=== PATIENT | male | born 1965 | race Caucasian/White ===

== ENCOUNTER 2017-06-02 22:28 | Emergency (ER) | payer OTHER ==
[~2017-06-02] VITALS: Ht 175.3 cm; Wt 80.7 kg
[2017-06-02] MEDS ORDERED: LIDO:MAALOX 1:1 20 ML SINGLE DOSE ONE (22:49)
[2017-06-02] MEDS ORDERED: LIDO:MAALOX 1:1 20 ML SINGLE DOSE PO ONE ×2 (23:00)
[2017-06-02] MEDS ORDERED: KETOROLAC 30 MG/ML VIAL. IV ONE (23:15)
[2017-06-02] MEDS ORDERED: IV NORMAL SALINE 1,000ML 1,000 ML IV SCH (23:15)
[2017-06-02] MEDS ORDERED: ONDANSETRON PF 4 MG/2 ML VIAL. IV ONE (23:15)
[2017-06-02] MEDS ORDERED: fentaNYL PF 100 MCG/2 ML VIAL IV PRN (23:15)
[2017-06-02] MEDS ORDERED: FAMOTIDINE 20 MG/2 ML VIAL IVP ONE (23:15)
--- NOTE | 2017-06-02 23:28 | PHYS DOC ---
General Chief Complaint: ABDOMINAL PAIN Stated Complaint: ABDOMINAL PAIN Time Seen by MD: 22:41 Source: patient Exam Limitations: no limitations Problems: History of Present Illness Initial Comments Patient is a 52-year-old male who comes to the ED complaining of abdominal pain. Patient states that for the past 2 days he's had intermittent and worsening epigastric and right upper quadrant pain. 2 nights ago (Saturday night) he says he developed epigastric aching pain described as moderate no exacerbating or relieving factors noted. There was no relation to by mouth intake symptoms did resolve that evening spontaneously. Today around 7 PM patient had a recurrence of the discomfort this time it was more severe. He feels as if he has fullness or gas in his epigastric/right upper quadrant however he has burped and passed gas without any relief. He's had no nausea vomiting no diarrhea constipation no changes in stool color or caliber. No fever chills sweats or myalgias no travel or bad food exposure. Timing/Duration: getting worse (2 days) Severity: severe Modifying Factors: improves with other Associated Symptoms: other Allergies: Coded Allergies: No Known Drug Allergies (Unverified , 06/02/17) Past Medical History Medical History: no pertinent history Surgical History: no surgical history Social History Smoker: non-smoker Alcohol: occasionally Drugs: none Review of Systems Constitutional: denies chills, denies diaphoresis, denies fever, denies malaise Respiratory: denies cough, denies shortness of breath Cardiovascular: denies chest pain, denies palpitations, denies syncope Gastrointestinal: see HPI Genitourinary: denies discharge, denies frequency, denies hematuria Musculoskeletal: denies back pain, denies joint swelling, denies neck pain Psychiatric/Neurological: denies headache, denies numbness, denies paresthesia Physical Exam General Appearance: WD/WN, mild distress Eyes: bilateral eye normal inspection, bilateral eye PERRL, bilateral eye EOMI Ear, Nose, Throat: hearing grossly normal, normal ENT inspection, normal pharynx Neck: non-tender, supple Respiratory: normal breath sounds, no respiratory distress Cardiovascular: normal peripheral pulses, regular rate, rhythm Gastrointestinal: soft (ND, RUQ/epigastric TTP with guarding no rebound, no palpable mass, BS diminished.) Back: no CVA tenderness, no vertebral tenderness Extremities: non-tender, normal inspection 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 Interpreted by Dr. Gaitan no prior for comparison. PATIENT: DESMOND GOMEZ ACCOUNT: [id number] : 1965 LOCATION: ER AGE: 52 SEX: M EXAM STATUS: REG ER ORD. PHYSICIAN: RUFUS GAITAN DO REASON: RUQ pain PROCEDURE: ABDOMEN LTD Right upper quadrant abdominal ultrasound History: epigastric pain Comparison: None. Technique: Transabdominal ultrasound images are obtained. Findings: Visualized pancreas is unremarkable. Pancreas tail not well seen. Liver is normal in echogenicity. No focal hepatic masses are identified. Portal flow is hepatopedal. Right hepatic lobe measures 14.5 cm, normal. There is a 6 mm gallbladder polyp or tumefactive sludge. There are several other tiny polyps or sludge. No gallbladder wall thickening. Common bile duct caliber is normal measuring 4 mm in diameter. The right kidney measures 11.1 cm in length and is without evidence of obstruction or stone. Visualized portions of the aorta and IVC have normal caliber. IMPRESSION: No sonographic evidence of cholecystitis. There are tiny gallbladder polyps or tumefactive sludge. Electronically signed by: Dave Bass MD (06/03/2017 1:06 AM) [facility] DICTATED AND SIGNED BY: DAVE BASS MD DATE: 06/03/17102 CC: PCP,UNKNOWN; RUFUS GAITAN DO ~ 0118: Time in department 2 hours 50 minutes. Prolonged ED course due to radiology delays. Right upper quadrant ultrasound with some minor abnormalities nothing to explain the patient's symptoms. I rechecked him he states that GI cocktail had no benefit and he actually vomited it up. Intravenous pain medication is helping however he can tell the pain is coming back. CT evaluation is indicated patient is agreeable patient will have a further prolonged ED course. PATIENT: DESMOND GOMEZ ACCOUNT: [id number] : 1965 LOCATION: ER AGE: 52 SEX: M EXAM STATUS: REG ER ORD. PHYSICIAN: RUFUS GAITAN DO REASON: upper abdominal pain PROCEDURE: CT ABD PELV W/ IV CONTRST ONLY PQRS Compliance Statement: One or more of the following individualized dose reduction techniques were utilized for this examination: 1. Automated exposure control 2. Adjustment of the mA and/or kV according to patient size 3. Use of iterative reconstruction technique CT ABD PELV W/ IV CONTRST ONLY Clinical Indication: Severe right upper abdominal pain today. Comparison: Limited abdominal ultrasound, prior day. Technique: Helical CT imaging of the abdomen and pelvis is performed after 75 cc Omnipaque 300 IV contrast. Oral contrast not given. Findings: Minimal dependent atelectasis in the lung bases. Cardiac size normal. Liver, gallbladder, spleen, pancreas, adrenal glands, abdominal aorta, and kidneys are normal. Evaluation of bowel may be limited without oral contrast. Stomach unremarkable. There are a few borderline dilated small bowel loops in the lower abdomen. No point of transition. The appendix is normal. There is moderate stool throughout the colon. No abdominal adenopathy or free fluid. Urinary bladder is normal. Coarse calcifications in the right paracentral prostate. No pelvic free fluid. No acute bone abnormality. IMPRESSION: 1. No acute abdominal or pelvic abnormality. 2. Moderate colon stool volume. Electronically signed by: Dave Bass MD (06/03/2017 2:08 AM) [facility] DICTATED AND SIGNED BY: DAVE BASS MD DATE: 06/03/17 0152 CC: PCP,UNKNOWN; RUFUS GAITAN DO ~ Lab and urine studies reassuring I discussed findings with the patient at length. No emergent cause for his symptoms noted in the emergency department. He may need an elective cholecystectomy at some point but will need to follow-up as an outpatient. He expressed agreement and understanding with the treatment plan. Departure Time of Disposition: 02:48 Disposition: 01 HOME, SELF-CARE Diagnosis: abdominal pain, gallbladder polyps Condition: STABLE Patient Instructions: Abdominal Pain (Nonspecific) Additional Instructions: Work excuse through June 05. Clear liquids today, advance diet slowly as tolerated starting tomorrow. Prescription: Simethicone, dicyclomine, Epworth 7.5 mg (30). Take Epworth with food to avoid abdominal discomfort and nausea and vomiting. Increase fluid intake and take [id number] stool softeners to avoid opiate associated constipation. Follow-up with your doctor Saturday or Saturday for recheck and to discuss possible further testing for the gallbladder or GI referral. Return to ED with new or changing symptoms. RUFUS GAITAN DO Jun 02, 2017 23:28
[2017-06-02 23:47] LABS: BASO % 1 % (0-3); EOS # 0.6 x10^3/uL (0.0-0.7); EOS % 9 % (0-3); HEMATOCRIT 49.3 % (39.0-53.0); HEMOGLOBIN 16.7 g/dL (13.0-17.5); LYMPH # 2.8 x10^3/uL (1.0-4.8); LYMPH % 37 % (24-48); MEAN CORPUSCULAR HEMOGLOBIN 31 pg (25-35); MEAN CORPUSCULAR HGB CONC 34 g/dL (31-37); MEAN CORPUSCULAR VOLUME 91 fL (79-100); MONO # 0.7 x10^3/uL (0.0-1.1); MONO % 10 % (0-9); NEUT # 3.4 x10^3uL (1.8-7.7); NEUT % 44 % (31-73); PLATELET COUNT 197 x10^3/uL (140-400); RED BLOOD COUNT 5.41 x10^6/uL (4.30-5.70); RED CELL DISTRIBUTION WIDTH 13.2 % (11.5-14.5); WHITE BLOOD COUNT 7.5 x10^3/uL (4.0-11.0)
[2017-06-02 23:52] LABS: BACTERIA,URINE 0 /HPF (0-FEW); BILIRUBIN,URINE NEG (NEG); CLARITY,URINE CLEAR; COLOR,URINE YELLOW; GLUCOSE,URINE NEG (NEG); NITRITE,URINE NEG (NEG); SQUAMOUS EPITHELIAL CELL,UR OCC /LPF; UROBILINOGEN,URINE 0.2 mg/dL (0.2 mg/dL); WBC,URINE OCC /HPF (0-4)
[2017-06-03 00:08] LABS: ALBUMIN 3.9 g/dL (3.4-5.0); ALBUMIN/GLOBULIN RATIO 1.1 (1.0-1.7); CALCIUM 9.2 mg/dL (8.5-10.1); GFR 79.1; POTASSIUM 3.9 mmol/L (3.5-5.1); TOTAL BILIRUBIN 0.3 mg/dL (0.2-1.0); TOTAL PROTEIN 7.3 g/dL (6.4-8.2)
--- NOTE | 2017-06-03 01:09 | RAD ---
Right upper quadrant abdominal ultrasound History: epigastric pain Comparison: None. Technique: Transabdominal ultrasound images are obtained. Findings: Visualized pancreas is unremarkable. Pancreas tail not well seen. Liver is normal in echogenicity. No focal hepatic masses are identified. Portal flow is hepatopedal. Right hepatic lobe measures 14.5 cm, normal. There is a 6 mm gallbladder polyp or tumefactive sludge. There are several other tiny polyps or sludge. No gallbladder wall thickening. Common bile duct caliber is normal measuring 4 mm in diameter. The right kidney measures 11.1 cm in length and is without evidence of obstruction or stone. Visualized portions of the aorta and IVC have normal caliber. IMPRESSION: No sonographic evidence of cholecystitis. There are tiny gallbladder polyps or tumefactive sludge. Electronically signed by: Dave Bass MD (06/03/2017 1:06 AM) [facility]
[2017-06-03] MEDS ORDERED: CONTRAST GIVEN MC PRN (01:45)
[2017-06-03] MEDS ORDERED: IOHEXOL 300 MG/ML 75 ML VIAL. IV ONE (01:45)
--- NOTE | 2017-06-03 02:11 | RAD ---
PQRS Compliance Statement: One or more of the following individualized dose reduction techniques were utilized for this examination: 1. Automated exposure control 2. Adjustment of the mA and/or kV according to patient size 3. Use of iterative reconstruction technique CT ABD PELV W/ IV CONTRST ONLY Clinical Indication: Severe right upper abdominal pain today. Comparison: Limited abdominal ultrasound, prior day. Technique: Helical CT imaging of the abdomen and pelvis is performed after 75 cc Omnipaque 300 IV contrast. Oral contrast not given. Findings: Minimal dependent atelectasis in the lung bases. Cardiac size normal. Liver, gallbladder, spleen, pancreas, adrenal glands, abdominal aorta, and kidneys are normal. Evaluation of bowel may be limited without oral contrast. Stomach unremarkable. There are a few borderline dilated small bowel loops in the lower abdomen. No point of transition. The appendix is normal. There is moderate stool throughout the colon. No abdominal adenopathy or free fluid. Urinary bladder is normal. Coarse calcifications in the right paracentral prostate. No pelvic free fluid. No acute bone abnormality. IMPRESSION: 1. No acute abdominal or pelvic abnormality. 2. Moderate colon stool volume. Electronically signed by: Dave Bass MD (06/03/2017 2:08 AM) [facility]
[2017-06-03] MEDS ORDERED: DICY20TA3 PO (02:47)
[2017-06-03] MEDS ORDERED: SIME80TA14 PO (02:47)
[2017-06-03] MEDS ORDERED: HYDR-971 PO (02:47)
[2017-06-03 02:55] VITALS: BP 119/77
--- NOTE | 2017-06-03 08:23 | RAD ---
Exam performed: Acute abdominal series. Clinical indication: Epigastric pain tonight Date of Service: 06/02/17. Comparison: None available Findings: One view chest radiograph reveal a normal cardiomediastinal contour. The lungs are clear. Evidence of pleural fluid or free subdiaphragmatic air is absent. The bowel pattern is unremarkable. There is diffuse scattered stool throughout the colon No pathologic calcification or organomegaly is seen. Impression: Negative chest.. Diffuse scattered stool throughout the colon suggesting constipation.
--- NOTE | 2017-06-03 13:48 | EKG ---
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
== END 2017-06-03 02:55 | disposition home or self-care (01) ==
LOC: ER 22:28
DX: K82.4 Cholesterolosis of gallbladder (principal)
CPT/HCPCS: 36415; 74022; 74177; 76705; 80053; 81001; 82550; 83605; 83690; 84484; 85025; 93005; 96361; 96374; 96375; 99285; G0480; J1885; J2405; J3010; Q9967; S0028; J7030

== ENCOUNTER → 2017-11-08 | Outpatient (CLI) | payer OTHER ==
[~2017-11-08] MED LIST: DICY20TA3 PO; HYDR-971 PO; SIME80TA14 PO
[2017-11-08 17:51] LABS: BASO % 1 % (0-3); EOS # 0.3 x10^3/uL (0.0-0.7); EOS % 5 % (0-3); HEMATOCRIT 47.5 % (39.0-53.0); HEMOGLOBIN 16.4 g/dL (13.0-17.5); LYMPH # 2.2 x10^3/uL (1.0-4.8); LYMPH % 34 % (24-48); MEAN CORPUSCULAR HEMOGLOBIN 31 pg (25-35); MEAN CORPUSCULAR HGB CONC 35 g/dL (31-37); MEAN CORPUSCULAR VOLUME 90 fL (79-100); MONO # 0.5 x10^3/uL (0.0-1.1); MONO % 8 % (0-9); NEUT # 3.3 x10^3uL (1.8-7.7); NEUT % 52 % (31-73); PLATELET COUNT 194 x10^3/uL (140-400); RED BLOOD COUNT 5.27 x10^6/uL (4.30-5.70); RED CELL DISTRIBUTION WIDTH 12.7 % (11.5-14.5); WHITE BLOOD COUNT 6.4 x10^3/uL (4.0-11.0)
[2017-11-08 18:00] LABS: ALBUMIN 3.9 g/dL (3.4-5.0); ALBUMIN/GLOBULIN RATIO 1.1 (1.0-1.7); CALCIUM 9.2 mg/dL (8.5-10.1); CREATININE 0.9 mg/dL (0.7-1.3); GFR 89.3; POTASSIUM 4.8 mmol/L (3.5-5.1); TOTAL BILIRUBIN 0.3 mg/dL (0.2-1.0); TOTAL PROTEIN 7.3 g/dL (6.4-8.2)
== END | disposition home or self-care (01) ==
LOC: PMG 17:05
PROVIDERS: ATTEND Family Medicine
DX: R31.9 Hematuria, unspecified (principal)
CPT/HCPCS: 36415; 80053; 84443; 85025

== ENCOUNTER → 2018-11-27 | Outpatient (CLI) | payer OTHER ==
[~2018-11-27] MED LIST changes: +HYDR-3165 PO; -HYDR-971 PO
--- NOTE | 2018-11-27 17:50 | RAD ---
AP and lateral right knee radiographs 11/27/2018 CLINICAL HISTORY: Right knee pain for years. AP and lateral digital radiographs of the right knee were obtained. No fracture or dislocation of the right knee is seen. Mild degenerative changes are seen involving the medial and patellofemoral compartments of the right knee. There is no radiographic evidence of a joint effusion. IMPRESSION: Mild degenerative changes are seen within the right knee. No acute osseous abnormality is seen. Electronically signed by: Donny Martinez MD (11/27/2018 5:47 PM) [facility]
== END | disposition home or self-care (01) ==
LOC: PMG 16:57
PROVIDERS: ATTEND Family Medicine
DX: M17.11 Unilateral primary osteoarthritis, right knee (principal)
CPT/HCPCS: 73560

== ENCOUNTER 2019-11-15 12:51 | Emergency (ER) | payer OTHER ==
[~2019-11-15] VITALS: Ht 177.8 cm; Wt 77.3 kg
--- NOTE | 2019-11-15 13:12 | PHYS DOC ---
Past History Past Medical History: No Pertinent History Past Surgical History: No Surgical History Alcohol Use: Occasionally Drug Use: None Adult General Chief Complaint Chief Complaint: HAND PROBLEM [facility] Patient is a 54-year-old male presents with complaint of a stab injury to the right hand. The patient was using a binder and box builder just prior to arrival and punctured his right hand proximal to the thumb along the thenar eminence. His tetanus is not up-to-date within the last 5 years. The injury is approximately 1.5 cm in length and currently hemostatic. No numbness or tingling distally and range of motion is intact. Review of Systems Review of Systems All other ROS is negative unless otherwise stated in [facility] Allergies Allergies Allergies Coded Allergies Type Severity Reaction Last Updated Verified No Known Drug Allergies 06/02/17 No Physical Exam Physical Exam See above Constitutional: Well developed, well nourished, no acute distress, non-toxic appearance. [] HENT: Normocephalic, atraumatic, bilateral external ears normal, oropharynx moist, no oral exudates, nose normal. [] Eyes: PERRLA, EOMI, conjunctiva normal, no discharge. [] Neck: Normal range of motion, no tenderness, supple, no stridor. [] Cardiovascular:Heart rate regular rhythm, no murmur [] Lungs & Thorax: Bilateral breath sounds clear to auscultation [] Skin: Warm, dry, no erythema, no rash. 1.5 cm laceration to the right thenar eminence that is currently hemostatic and well approximated. Back: No tenderness, no CVA tenderness. [] Extremities: No tenderness, no cyanosis, no clubbing, ROM intact, no edema. [] Neurologic: Alert and oriented X 3, normal motor function, normal sensory function, no focal deficits noted. [] Psychologic: Affect normal, judgement normal, mood normal. [] EKG EKG [] Radiology/Procedures Radiology/Procedures Laceration was cleaned by nursing staff with saline. Closure was performed with Dermabond by myself. Dressing was applied by nursing staff. Patient tolerated well.[] Course & Med Decision Making Course & Med Decision Making Patient seen for puncture wound of right thenar eminence. Wound cleaned and closed as above. Tetanus updated. Follow-up as needed. Dragon Disclaimer Dragon Disclaimer This electronic medical record was generated, in whole or in part, using a voice recognition dictation system. Departure Departure: Impression: Primary Impression: Laceration of right hand Disposition: HOME, SELF-CARE Condition: IMPROVED Referrals: RAQUEL SPAIN MD (PCP) Patient Instructions: Laceration Care, Adult Additional Instructions: Keep wound clean. Wash gently. JEANNINE HARE DO Nov 15, 2019 13:12
[2019-11-15] MEDS ORDERED: DIPHTH,PERTUSS(ACELL),TET TOX 0.5 ML DISP.SYRIN. VAX IM ONE (13:15)
== END 2019-11-15 13:21 | disposition home or self-care (01) ==
LOC: ER 12:51
DX: S61.411A Laceration without foreign body of right hand, initial encounter (principal); W26.8XXA Contact with other sharp object(s), not elsewhere classified, initial encounter; Y93.89 Activity, other specified; Y92.89 Other specified places as the place of occurrence of the external cause; Y99.8 Other external cause status
CPT/HCPCS: 12001; 90471; 90715; 99283